=== PATIENT | female | born 1990 ===

== ENCOUNTER 2017-03-01 10:22 | Emergency (ER) | payer OTHER ==
--- NOTE | 2017-03-01 12:13 | DIAGNOSTIC IMAGING REPORT ---
PROCEDURE: XR RIBS BILATERAL W/PA CHEST INDICATION: TRAUMA/INJURY TECHNIQUE: Two views of the left ribs with single PA view chest. COMPARISON: None. FINDINGS: LEFT RIBS: No displaced rib fractures. No suspicious rib lesions. CHEST: Normal cardiomediastinal contour. Clear lungs without pleural effusion, pneumothorax, or contusion. The other visible osseous structures are intact. IMPRESSION: 1. Intact left ribs. 2. Normal chest without radiographic evidence of trauma.
--- NOTE | 2017-03-01 12:14 | ED ORDER SUMMARY ---
..... Patient: JUAN SAINI OrderSheet [facility] VisitID: [id number] [place] [address] 26y, F Registration Date/Time: 03/01/2017 ORDER SHEET Weight: 101.6 kg (stated) Allergies: No Known Drug Allergy GENERAL ORDERS: Ribs Bilat w PA Chest Urgent (11:19 03/01/2017 Gladys CURIEL) (Ack 11:19 LNations ER Tech1) (11:41 LNations ER Tech1) (11:42 EHassan R.N.) MEDICATION ORDERS: Toradol IM 60 mg (NOW) (11:22 03/01/2017 Gladys CURIEL) (11:42 EHassan R.N.) Zofran ODT PO 4 mg (NOW) (12:22 03/01/2017 Maria Elena R.N. verbal order read back to Gladys CURIEL) (12:23 EHassan R.N.) IV FLUIDS: ORDER SHEET NOTES: [Electronically signed by Dean Yañez R.N. (12:34 03/01/2017)] [Electronically signed by Mavis Lin MD (22:10 03/01/2017)] [Electronically locked/signed by Dean Yañez R.N. (12:34 03/01/2017)]
--- NOTE | 2017-03-01 12:14 | ED NURSING NOTES ---
Clinical Report - Nurses [facility] [place] [address] 03/01/2017 10:27 Patient: JUAN SAINI TRIAGE Triage time 1038 AM. Acuity: LEVEL 4. Chief Complaint: (back pain- mid back). Alert. No acute distress. SARITHA COMA SCORE: [place] Coma Scale: 15- eyes open spontaneously (4); best verbal response- oriented x 4 (5); best motor response- obeys commands (6). --10:50 Huyen Marion R.N. 10:37 03/01/17. BP: 143/98 (regular adult cuff) taken on the right arm, via an automated monitor, while sitting. HR: 92. RR: 16. O2 saturation: 100% on room air. Temp: 97.3 F (oral). Pain level now: 03/08. --10:50 Huyen Marion R.N. Chief Complaint: NECK PAIN and BACK PAIN. --10:51 Huyen Marion R.N. Weight: 101.6 kg stated. Height/Length: 63 inches Per Patient. BMI: 39.7. --10:38 Huyen Marion R.N. Medications Ibuprofen Oral. --10:39 Huyen Marion R.N. Allergies No Known Drug Allergy. --10:39 Huyen Marion R.N. Medication/allergy information source: the patient. --10:50 Huyen Marion R.N. History Arrived by private vehicle. Historian: patient. Primary physician (Dr. Sabrina Lin). 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 Pt has had a back injury to her lower back. Pt took ibuprofen and applied ice hot with minimal relief, pt states it hurts when she breaths in. Here for further evaluation). This started today. Reports muscle aches. No fever, weakness, cough, difficulty breathing or skin rash. 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 PAST MEDICAL HX: Immunizations: up-to-date. Last normal menstrual period- 2 weeks. Denies current : on control- left arm implant. SOCIAL HX: Never smoker. No alcohol use or drug use. No infectious disease exposure. ABUSE ASSESSMENT: No report of abuse. SELF HARM ASSESSMENT: A self harm assessment was performed. The patient answered "no" to the question "Do you have thoughts of harming or killing yourself?" and "Have you recently had thoughts about harming or killing others?". FALL RISK ASSESSMENT: Fall risk assessment completed. No fall risk identified. NUTRITIONAL RISK ASSESSMENT: The nutritional risk assessment revealed no deficiencies. FUNCTIONAL ASSESSMENT: Functional assessment: no impairments noted. LEARNING NEEDS ASSESSMENT: The learning needs assessment revealed no barriers. SKIN INTEGRITY ASSESSMENT: Skin integrity risk assessment completed. No skin integrity risk identified. --10:50 Huyen Marion R.N. PROBLEMS: Back Pain. Cyst. --10:41 Huyen Marion R.N. ADDITIONAL SURGERIES: no known surgeries. Interventions ID band on patient. --10:50 Huyen Marion R.N. PHYSICAL ASSESSMENT Ambulatory to room. GENERAL / NEURO / PSYCH: Alert. Oriented X 4. Appears in pain. HEENT: Pupils equal, round and reactive to light. No facial asymmetry noted. Mucous membranes are pink. RESPIRATORY: Respirations not labored. Chest nontender. Breath sounds within normal limits. CVS: Capillary refill less than 2 seconds. Pulses within normal limits. GI / : Abdomen nontender. SKIN: Skin intact. Skin is warm and dry. Normal skin turgor. No skin breakdown noted. BACK: Limited ROM in the back- in the cervical spine: decreased rotation to the right and left; in the thoracic spine: decreased flexion and rotation to the right and left. Vertebral point tenderness over the thoracic spine. Soft tissue tenderness in the right mid and left mid thoracic paraspinous region. --10:53 Huyen Marion R.N. NURSING PROGRESS NOTES The initial plan of care for this patient has been created This plan of care was discussed with the patient. Patient gowned. Warming measures: blanket applied. Reassurance given. Two patient identifiers checked. Call light placed in reach. Side rails up x 1. Bed placed in lowest position. Patient ready for evaluation- ED physician notified. --10:54 Huyen Marion R.N. 11:42 03/01/2017 Toradol (Ketorolac Tromethamine) IM 60 mg given. Given in the left deltoid. Allergies verified and confirmed 5 rights. --11:42 Huyen Marion R.N. Reassurance given. ( Pt states pain is better, but now feeling nausea "unsure from what, felt it when at [employer]"). Patient identifiers checked. Call light placed in reach. --12:20 Huyen Marion R.N. 12:18 03/01/17. BP: 120/72 (regular adult cuff) taken on the right arm, via an automated monitor, while sitting. HR: 98. RR: 14. O2 saturation: 100%. Temp: 97.9 F (oral). Pain level now: 01/06. --12:20 Huyen Marion R.N. 12:23 03/01/2017 Zofran ODT (Ondansetron) PO Oral Disintegrating Tablets 4 mg given. Allergies verified and confirmed 5 rights. --12:23 Huyen Marion R.N. 12:33 03/01/17. Reassessment after medication administered. Overall patient status is improved- she states feels better. RESPIRATORY: No respiratory distress. Breath sounds normal. GI / : Denies nausea. SKIN: Skin is warm and dry. --12:33 Dean Yañez R.N. DISPOSITION / DISCHARGE 12:33 03/01/17. Condition at departure: improved. The goals identified in the patient's plan of care were met. No learning barriers present. Discharge instructions provided and reviewed with the patient. Reviewed warnings. Reviewed medication(s). Treatments reviewed. Patient verbalized understanding. Written instructions provided in [place]. The patient was discharged by the physician. She was discharged home. She left the Emergency Department ambulatory and via private vehicle. Patient driving. FALL RISK ASSESSMENT: Fall risk assessment completed. No fall risk identified. --12:33 Dean Yañez R.N. 12:32 03/01/17. BP: 117/71. HR: 81. RR: 14. O2 saturation: 100% on room air. Temp: 98.2 F (oral). Pain level now: 12/09. --12:33 Dean Yañez R.N. 12:33 03/01/17. Departure time: 12:33. --12:33 Dean Yañez R.N. Locked/Released at 03/01/2017 12:34 by Dean Yañez R.N.
--- NOTE | 2017-03-01 12:14 | ED CLINICAL REPORT ---
Clinical Report - Physicians/Mid Levels [facility] [address] [place] [address] 03/01/2017 10:27 Patient: JUAN SAINI Time Seen: 10:54. Arrived- By private vehicle. Historian- patient. HISTORY OF PRESENT ILLNESS Chief Complaint: BACK PAIN. Onset- several hours ago and it is still present. Modifying factors- worsened by rotation of the head to the right or left, neck flexion, coughing, laughing or taking deep breaths. Not relieved by anything. It is described as being moderate in degree and in the area of the left side of the mid-thoracic spine and right side of the mid-thoracic spine. The quality is noted to be "pain". No bladder dysfunction, bowel dysfunction, sensory loss or motor loss. Patient notes an injury. Mechanism of injury- (Patient states that she was eating breakfast and choked on a piece of toast. This caused her to cough very hard and she felt a sudden pop and pain in her posterior ribs. She states it felt as if it was on both sides on either side of the spine. However, she denies pain in spine itself.). No other injury. Similar symptoms previously: None. Recent medical care: Not recently seen/assessed. REVIEW OF SYSTEMS No fever, chills, eye discomfort, headache or sore throat. No cough, difficulty breathing, chest pain, skin rash or abdominal pain. No nausea, vomiting, diarrhea, black stools or difficulty with urination. No urinary frequency, hematuria or bloody stools. All systems otherwise negative, except as recorded above. PAST HISTORY Problems: Back Pain. Cyst. Additional Surgeries: no known surgeries. Medications: Ibuprofen Oral. Allergies: No Known Drug Allergy. SOCIAL HISTORY Never smoker. No alcohol use or drug use. ADDITIONAL NOTES The nursing notes have been reviewed. PHYSICAL EXAM Vital Signs: 03/01/2017 10:37 BP: 143/98. HR: 92. RR: 16. O2 saturation: 100%. Temp: 97.3 F. Pain level now: 03/08. Have been reviewed. Appearance: Alert. No acute distress. HEENT: Normal external inspection. Eyes: Pupils equal, round and reactive to light. Neck: Normal inspection. Neck nontender. Painless ROM. CVS: Normal heart rate and rhythm. Heart sounds normal. Pulses normal. Respiratory: No respiratory distress. Breath sounds normal. Abdomen: Normal inspection. Soft and nontender. Back: Moderate soft tissue tenderness in the right mid and left mid thoracic area (tenderness is within a few centimeters of the spinal column on either side.). No vertebral point tenderness. Skin: Skin warm and dry. Normal skin color. No rash. Normal skin turgor. Extremities: Extremities exhibit normal ROM. Extremities nontender. Neuro: Mood/affect normal. No motor deficit. No sensory deficit. (Patient is grossly oriented.). LABS, X-RAYS, AND EKG Sternum / Ribs X-rays: No fracture present. Normal lung markings present. Soft tissues normal. No bony lesion present. Views: right ribs and left ribs. AP of chest. Technique: good. The X-rays were independently viewed by me, interpreted by the radiologist and contemporaneously by me and discussed with the radiologist. Prior films were not available for comparison. Pulse Oximetry: 03/01/2017 10:37 O2 saturation: 100%. (FIO2 - room air). Interpretation: normal. PROGRESS AND PROCEDURES Course of Care: Patient was treated symptomatically with Toradol and worked up with a bilateral rib x-ray series which was found to be negative. Patient counseled in person regarding the patient's stable condition, test results, diagnosis and need for follow-up. Concerns were addressed. Old medical records reviewed. Disposition: Discharged. Condition: stable and improved. CLINICAL IMPRESSION Muscle strain of the mid back (Intercostal muscle). INSTRUCTIONS Apply ice for 20 minutes three times a day as needed and until better. Don't apply ice directly to skin and don't use while asleep. Warnings: GENERAL WARNINGS: Return or contact your physician immediately if your condition worsens or changes unexpectedly, if not improving as expected, or if other problems arise. Your Current Medications: CONTINUE TAKING THE FOLLOWING MEDICATIONS: Ibuprofen Oral. Prescription Medications: Hydrocodone/APAP 5mg / 325mg: take 1-2 orally every 6 hours as needed for pain. Dispense twelve (12). No refill. Follow-up: Follow up with your doctor as needed. Understanding of the discharge instructions verbalized by patient. (Electronically signed by Mavis Lin MD 03/01/2017 22:10)
--- NOTE | 2017-03-01 12:14 | ED ORDER SUMMARY ---
..... Patient: JUAN SAINI OrderSheet [facility] VisitID: [id number] [place] [address] 26y, F Registration Date/Time: 03/01/2017 ORDER SHEET Weight: 101.6 kg (stated) Allergies: No Known Drug Allergy GENERAL ORDERS: Ribs Bilat w PA Chest Urgent (11:19 03/01/2017 Gladys UCRIEL) (Ack 11:19 LNations ER Tech1) (11:41 LNations ER Tech1) (11:42 EHassan R.N.) MEDICATION ORDERS: Toradol IM 60 mg (NOW) (11:22 03/01/2017 Gladys CURIEL) (11:42 EHassan R.N.) Zofran ODT PO 4 mg (NOW) (12:22 03/01/2017 Maria Elena R.N. verbal order read back to Gladys CURIEL) (12:23 EHassan R.N.) IV FLUIDS: ORDER SHEET NOTES: [Electronically signed by Dean Yañez R.N. (12:34 03/01/2017)] [Electronically signed by Mavis Lin MD (22:10 03/01/2017)] [Electronically locked/signed by Dean Yañez R.N. (12:34 03/01/2017)]
--- NOTE | 2017-03-01 22:10 | ED MAR SUMMARY ---
..... Medication Administration Record [facility] [address] [place] [address] Patient: JUAN SAINI Visit ID: [id number] 26y, F Weight: 101.6 kg Height/Length: 63 in BMI: 39.7 ALLERGIES: No Known Drug Allergy Given 11:42 03/01/2017 Huyen Marion, R.N. Medication Administered: TORADOL [IM] (KETOROLAC TROMETHAMINE), Dose: 60 mg IM. Medication Ordered: Toradol IM 60 mg (NOW). Given 12:23 03/01/2017 Huyen Marion, R.N. Medication Administered: ZOFRAN ODT [PO] (ONDANSETRON), Dose: 4 mg Oral Disintegrating Tablets PO. Medication Ordered: Zofran ODT PO 4 mg (NOW).
--- NOTE | 2017-03-01 22:10 | ED MAR SUMMARY ---
..... Medication Administration Record [facility] [address] [place] [address] Patient: JUAN SAINI Visit ID: [id number] 26y, F Weight: 101.6 kg Height/Length: 63 in BMI: 39.7 ALLERGIES: No Known Drug Allergy Given 11:42 03/01/2017 Huyen Marion, R.N. Medication Administered: TORADOL [IM] (KETOROLAC TROMETHAMINE), Dose: 60 mg IM. Medication Ordered: Toradol IM 60 mg (NOW). Given 12:23 03/01/2017 Huyen Marion, R.N. Medication Administered: ZOFRAN ODT [PO] (ONDANSETRON), Dose: 4 mg Oral Disintegrating Tablets PO. Medication Ordered: Zofran ODT PO 4 mg (NOW).
--- NOTE | 2017-03-01 22:10 | ED MED RECONCILIATION SUMMARY ---
Patient: JUAN SAINI Medication Reconciliation Report [facility] VisitID: [id number] [place] [address] 26y, F Registration Date/Time: 03/01/2017 Weight: 101.6 kg Height/Length: 63 in. BMI: 39.7 ALLERGIES: No Known Drug Allergy The patient's Home Medications are listed below: CONTINUE TAKING THE FOLLOWING MEDICATIONS: Ibuprofen Oral The source(s) of the original Home Medication information: patient The following Medications were given to the patient in the Emergency Department: Toradol [IM] IM 60 mg, administered: 03/01/2017 11:42:00 AM Zofran ODT [PO] PO 4 mg, administered: 03/01/2017 12:23:00 PM The following Medications were prescribed to the patient: Hydrocodone/APAP 5mg / 325mg: take 1-2 orally every 6 hours as needed for pain. Dispense twelve (12). No refill. -- Mavis Lin MD
--- NOTE | 2017-03-01 22:10 | ED DISCHARGE INSTRUCTIONS ---
Patient: JUAN SAINI General Instructions [facility] VisitID: [id number] [place] [address] 26y, F Registration Date/Time: 03/01/2017 Muscle strain of the mid back (Intercostal muscle). INSTRUCTIONS Apply ice for 20 minutes three times a day as needed and until better. Don't apply ice directly to skin and don't use while asleep. Warnings: GENERAL WARNINGS: Return or contact your physician immediately if your condition worsens or changes unexpectedly, if not improving as expected, or if other problems arise. Your Current Medications: CONTINUE TAKING THE FOLLOWING MEDICATIONS: Ibuprofen Oral. Prescription Medications: Hydrocodone/APAP 5mg / 325mg: take 1-2 orally every 6 hours as needed for pain. Dispense twelve (12). No refill. Follow-up: Follow up with your doctor as needed. Understanding of the discharge instructions verbalized by patient. ADDITIONAL INFORMATION Back Pain [Acute Or Chronic] Back pain is usually caused by an injury to the muscles or ligaments of the spine. Sometimes the disks that separate each bone in the spine may bulge and cause pain by pressing on a nearby nerve. Back pain may also appear after a sudden twisting/bending force (such as in a car accident), after a simple awkward movement, or lifting something heavy with poor body positioning. In either case, muscle spasm is often present and adds to the pain. Acute back pain usually gets better in one to two weeks. Back pain related to disk disease, arthritis in the spinal joints or spinal stenosis (narrowing of the spinal canal) can become chronic and last for months or years. Unless you had a physical injury (for example, a car accident or fall) X-rays are usually not ordered for the initial evaluation of back pain. If pain continues and does not respond to medical treatment, x-rays and other tests may be performed at a later time. Home Care: You may need to stay in bed the first few days. But, as soon as possible, begin sitting or walking to avoid problems with prolonged bed rest (muscle weakness, worsening back stiffness and pain, blood clots in the legs). When in bed, try to find a position of comfort. A firm mattress is best. Try lying flat on your back with pillows under your knees. You can also try lying on your side with your knees bent up towards your chest and a pillow between your knees. Avoid prolonged sitting. This puts more stress on the lower back than standing or walking. During the first two days after injury, apply an ICE PACK to the painful area for 20 minutes every 2-4 hours. This will reduce swelling and pain. HEAT (hot shower, hot bath or heating pad) works well for muscle spasm. You can start with ice, then switch to heat after two days. Some patients feel best alternating ice and heat treatments. Use the one method that feels the best to you. You may use acetaminophen (Tylenol) or ibuprofen (Motrin, Advil) to control pain, unless another pain medicine was prescribed. [NOTE: If you have chronic liver or kidney disease or ever had a stomach ulcer or GI bleeding, talk with your doctor before using these medicines.] Be aware of safe lifting methods and do not lift anything over 15 pounds until all the pain is gone. Follow Up with your doctor or this facility if your symptoms do not start to improve after one week. Physical therapy may be needed. [NOTE: If X-rays were taken, they will be reviewed by a radiologist. You will be notified of any new findings that may affect your care.] Get Prompt Medical Attention if any of the following occur: Pain becomes worse or spreads to your legs Weakness or numbness in one or both legs Loss of bowel or bladder control Numbness in the groin or genital area You have been given the following additional information: Back Pain (Acute Or Chronic) (Electronically signed by Mavis Lin MD 03/01/2017 22:10)
--- NOTE | 2017-03-01 22:10 | ED MED RECONCILIATION SUMMARY ---
Patient: JUAN SAINI Medication Reconciliation Report [facility] VisitID: [id number] [place] [address] 26y, F Registration Date/Time: 03/01/2017 Weight: 101.6 kg Height/Length: 63 in. BMI: 39.7 ALLERGIES: No Known Drug Allergy The patient's Home Medications are listed below: CONTINUE TAKING THE FOLLOWING MEDICATIONS: Ibuprofen Oral The source(s) of the original Home Medication information: patient The following Medications were given to the patient in the Emergency Department: Toradol [IM] IM 60 mg, administered: 03/01/2017 11:42:00 AM Zofran ODT [PO] PO 4 mg, administered: 03/01/2017 12:23:00 PM The following Medications were prescribed to the patient: Hydrocodone/APAP 5mg / 325mg: take 1-2 orally every 6 hours as needed for pain. Dispense twelve (12). No refill. -- Mavis Lin MD
== END 2017-03-01 12:33 | disposition home or self-care (01) ==
LOC: ED SRH 10:22
DX: S29.011A Strain of muscle and tendon of front wall of thorax, initial encounter (principal); X50.9XXA Other and unspecified overexertion or strenuous movements or postures, initial encounter; Y93.89 Activity, other specified; Y92.9 Unspecified place or not applicable; Y99.9 Unspecified external cause status; Z79.1 Long term (current) use of non-steroidal anti-inflammatories (NSAID)